=== PATIENT | male | born 1960 | race Caucasian/White ===

== ENCOUNTER → 2019-02-13 | Outpatient (CLI) | payer OTHER ==
--- NOTE | 2019-02-13 23:14 | CT ---
EXAMINATION TYPE: CT chest w con DATE OF EXAM: 02/13/2019 COMPARISON: None at this institution. HISTORY: abnormal cxr. hx of CABG. CT DLP: 480.5 mGycm. Automated Exposure Control for Dose Reduction was Utilized. TECHNIQUE: CT scan of the thorax is performed following with IV Contrast, patient injected with 100 mL of Isovue 300. FINDINGS: LUNGS: There is 9 mm nodule subpleural region superior aspect left lower lobe posteriorly that appear s to have a central round calcification occupying majority of nodule, strongly suspect benign calcifi ed granuloma. Consider CT in 6-12 months time to document stability. No additional suspicious nodules or masses. No pleural effusion or pneumothorax. Lungs are clear. MEDIASTINUM: There are no greater than 1 cm hilar or mediastinal lymph nodes. Few prominent but subce ntimeter lymph nodes near veena incidentally noted. No cardiomegaly or pericardial effusion is seen . Post-CABG changes with mediastinal clips and sternal wires is present. Ascending aorta measures up to 4.4 cm in diameter axial image 25 and sagittal image 59. No aneurysm extension into the arch or d escending aorta. Some sternal nonunion superiorly noted. OTHER: Visualized liver is hypodense consistent with diffuse fatty infiltration. Simple appearing 1.4 cm thin-walled cyst laterally in upper pole right kidney especially 71. IMPRESSION: 9 mm nodule superior posterior left lower lobe has round central calcification strongly f avoring benign granuloma. Consider CT follow-up in 6-12 months time to document stability. Note is ma de of ascending thoracic aortic aneurysm up to 4.4 cm also which can be reassessed on follow-up.
== END | disposition home or self-care (01) ==
LOC: RADCTMAIN 16:23
PROVIDERS: ATTEND Family Medicine
DX: J98.4 Other disorders of lung (principal); R91.1 Solitary pulmonary nodule; I71.2 Thoracic aortic aneurysm, without rupture; J44.9 Chronic obstructive pulmonary disease, unspecified; Z95.1 Presence of aortocoronary bypass graft
CPT/HCPCS: 71260; Q9967

== ENCOUNTER → 2020-04-02 | Outpatient (CLI) | payer OTHER | END | disposition home or self-care (01) | LOC: LABPAT 12:47 | PROVIDERS: ATTEND Orthopaedic Surgery | DX: Z01.812 Encounter for preprocedural laboratory examination (principal) | CPT/HCPCS: 87070 ==

== ENCOUNTER 2020-04-14 05:49 | Day surgery (SDC) | payer OTHER ==
[2020-04-09 18:00] VITALS: BMI 31.1
--- NOTE | 2020-04-13 09:52 | HP ---
HISTORY AND PHYSICAL CHIEF COMPLAINT: Left knee pain. 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 He notes pain with prolonged walking and getting up from a seated position. He notes it bothers him daily. He has tried previous medications in addition to injections with only partial temporary relief. He has also tried a home exercise program with activity modifications. PAST MEDICAL HISTORY: Significant for coronary artery disease, gout, hypertension and COPD. PAST SURGICAL HISTORY: Significant for coronary artery bypass grafting and hernia repair. CURRENT MEDICATIONS: 1. Allopurinol. 2. Carvedilol. 3. Lisinopril. 4. Pravastatin. ALLERGIES: He denies drug allergies. FAMILY HISTORY: Noncontributory. SOCIAL HISTORY: Significant for 1 pack per day tobacco use and social alcohol use. REVIEW OF SYSTEMS: Sixteen-point review of systems otherwise reviewed and is noncontributory. PHYSICAL EXAMINATION: On examination, the patient is approximately 6 feet tall, 217 pounds of endomorphic habitus. HEENT exam is nonfocal. Neck is supple. He has painless passive motion of the left hip. Straight leg raise is negative. Active motion left knee -12 to 95 degrees of flexion. He has a large effusion. He is tender about the medial joint line. Collaterals are stable, Keaton is negative, Dana's is equivocal. He has genu varum alignment. His distal neurovascular exam appears intact in the left lower extremity. X-rays to include weightbearing notch, lateral Merchant views left knee obtained in the office show severe medial compartment osteoarthrosis with [id number] changes. IMPRESSION: 1. Left knee severe medial and patellofemoral compartment osteoarthrosis. 2. History of chronic obstructive pulmonary disease. 3. History of coronary artery disease. RECOMMENDATIONS: I talked to the patient at length regarding his condition and treatment options. At this point, he is quite symptomatic and limited because of pain related to his osteoarthrosis despite conservative measures. After thorough discussion, he opts to proceed with surgery. We will plan to proceed with left total knee arthroplasty. MMODL / IJN: [id number] /
[~2020-04-14 05:49] MED LIST: ACETAMINOPHEN TAB 500 MG TAB PO PRN; MELOXICAM 7.5 MG TAB PO PRN; MIDAZOLAM 2 MG/2 ML VIAL IV PRN; TRANEXAMIC ACID 1,000 MG in SODIUM CHLORIDE 0.9% 100 ML IVPB PRN
[2020-04-14] MEDS: LIDOCAINE 1% (10MG/ML) FOR IV START INTRADERMA PRN ×2 (06:40→06:42)
[2020-04-14] MEDS: LACTATED RINGERS 1,000 ML IV SCH ×2 (06:40→07:53)
[2020-04-14] MEDS: DEXAMETHASONE SOD PHOSPHATE 4 MG/ML 1 ML VIAL IV ONE ×2 (07:00→11:47)
[2020-04-14] MEDS: ONDANSETRON 4 MG/2 ML VIAL IVP ONE ×2 (07:00→11:47)
[2020-04-14] MEDS ORDERED: fentaNYL (PF) 50 MCG/ML 2 ML AMP IV PRN (07:00)
[2020-04-14] MEDS ORDERED: HYDROmorphone 0.5 MG/0.5 ML SYRINGE IVP PRN ×2 (07:00→09:37)
[2020-04-14] MEDS ORDERED: fentaNYL (PF) 50 MCG/ML 2 ML AMP IVP ONE (07:24)
[2020-04-14] MEDS ORDERED: ROPIVACAINE 0.2%-NS ON-Q PUMP 1,090 MG, EMPTY PAIN BALL 1 EACH MISCELLANE PRN (07:43)
--- NOTE | 2020-04-14 07:43 | P.ANPRN ---
Procedure Note - Anesthesia - Nerve Block Performed Left Adductor Canal Infusion Time Out Performed: Yes Date of Procedure: 04/14/20 Procedure Start Time: : Procedure Stop Time: :31 Location of Patient: PreOp Indication: Requested by Surgeon Specifically requested for management of pain by DrAroldo: Stephon Delaney Sedation Type: Sedate with meaningful contact maintained Preparation: Sterile Prep, Sterile Dressing Position: Supine Catheter: Indwelling Needle Types: Pajunk Needle Gauge: 18, 20 Ultrasound used to visualize needle placement: Yes Ultrasound used to observe medication spread: Yes Injectate: 0.5% Ropivacaine (see comment for volume) (20 ml) Blood Aspirated: No Pain Paresthesia on Injection Noted: No Resistance on Injection: Normal Image Stored and Saved: Yes Events: Uneventful and Well Tolerated
[2020-04-14] MEDS ORDERED: ROPIVACAINE 246.25 MG, EPINEPHrine 0.5 MG, KETOROLAC 30 MG, cloNIDine HCL/PF 80 MCG, WA... MISCELLANE ONE ×5 (07:45)
[2020-04-14] MEDS ORDERED: fentaNYL (PF) 50 MCG/ML 2 ML AMP ONE (07:49)
[2020-04-14] MEDS ORDERED: PROPOFOL 10 MG/ML 20 ML VIAL IV ONE (07:49)
[2020-04-14] MEDS ORDERED: TRANEXAMIC ACID 1,000 MG/10 ML VIAL ONE (07:49)
[2020-04-14] MEDS ORDERED: MIDAZOLAM 2 MG/2 ML VIAL ONE (07:49)
[2020-04-14] MEDS ORDERED: KETAMINE 10 MG/ML 20 ML VIAL ONE (07:49)
[2020-04-14] MEDS ORDERED: PHENYLEPHRINE-0.9% NACL SYG 1,000 MCG/10 ML SYRINGE ONE (07:49)
[2020-04-14] MEDS ORDERED: SODIUM CHLORIDE 0.9% 100 ML BAG ONE (07:49)
[2020-04-14] MEDS ORDERED: LACTATED RINGERS 1,000 ML IV ONE (09:30)
[2020-04-14] MEDS ORDERED: NALOXONE 0.4 MG/ML 1 ML VIAL IV PRN (09:37)
[2020-04-14] MEDS ORDERED: ACETAMINOPHEN TAB 325 MG TAB PO PRN (09:37)
[2020-04-14] MEDS ORDERED: MAGNESIUM HYDROXIDE 2,400 MG/10 ML CUP PO PRN (09:37)
[2020-04-14] MEDS ORDERED: ONDANSETRON 4 MG/2 ML VIAL IVP PRN (09:37)
[2020-04-14] MEDS ORDERED: HYDROmorphone 1 MG/ML 1 ML SYRINGE IVP PRN (09:37)
[2020-04-14] MEDS ORDERED: HYDROcodone/APAP 7.5-325MG 1 EACH TAB PO PRN ×2 (09:37→09:39)
--- NOTE | 2020-04-14 10:11 | P.OP ---
Date of Procedure: 04/14/20 Preoperative Diagnosis: Left knee severe tricompartmental arthrosis Postoperative Diagnosis: Same Procedure(s) Performed: Left total knee arthroplastycruciate retainingcemented Implants: [employer] size 8 journeyed 2 cemented femoral component, size 7 cemented tibial component, 9 mm articular surface, 35 mm cemented patellar component. Anesthesia: regional, local, spinal Surgeon: Stephon Delaney Sales Representative [employer]1: Doyle Walton Estimated Blood Loss (ml): 50 Pathology: other (Bone fragments) Condition: stable Disposition: PACU Indications for Procedure: The patient's a 59-year-old gentleman who presents with progressive left knee pain secondary to osteoarthrosis despite previous conservative measures. A discussion of the risks and benefits of operative intervention versus continued conservative measures was made with patient. He opted to proceed with surgery. Operative risks to include infection, neurovascular injury, development of blood clots, possible component loosening, possible component failure need for subsequent procedures was discussed. Informed consent was obtained. Operative Findings: As below Description of Procedure: The patient was brought to the operating room, and after induction of spinal anesthesia the left lower extremity was prepped and draped in a normal fashion. The tourniquet was inflated to 270 mmHg. A longitudinal incision extending 3 finger breaths above the superior pole of the patella extending to the medial aspect the tibial tubercle was then made. The skin and subcutaneous tissues were divided sharply. Electrocautery was used for hemostasis. A medial parapatellar arthrotomy was then performed. The medial soft tissues to include the superficial and deep portions of the medial collateral ligament as well as the medial hamstring tendons were elevated subperiosteally. The proximal medial tibia osteophytes were carefully removed. The patella was everted. The knee was flexed. A portion of the retropatellar fat pad was excised sharply. The anterior cruciate ligament was sacrificed. A starting hole was made in the distal femur 1 cm anterior to the posterior cruciate origin. An intramedullary femoral guide was gently inserted planning on 5 valgus distal cut with 9 mm distal resection. The cutting block was pinned in place. The distal cut was then made. The posterior referencing sizing guide was utilized. 3 of external rotation was built into the system and verified off the trans- epicondylar axis and the posterior condyles. I felt size 8 was most appropriate. The cutting block was pinned in place. The anterior, posterior, and chamfer cuts were then made. The bone fragments were removed. A sulcus cut was then made with the appropriate guide. The trial size 8 femoral component was then placed and was fully seated. There was good anterior to posterior and medial to lateral fit. The distal peg holes were then drilled. The trial component was then removed. Attention was then paid towards preparing the proximal tibia. An extra medullary guide was utilized in line with the tibial shaft and second metatarsal distally. 3 posterior slope was planned. I planned on 2 mm resection from the medial compartment. The cutting block was pinned in place. The proximal tibial cut was then made. The bone was removed in one fragment. The remnants of the medial and lateral menisci were excised the capsule junction with electrocautery. The tibia sized most appropriately at size 7. The posterior osteophytes off the distal femur were carefully removed with a curved osteotome. The trial tibial and femoral components were placed along with a 9 millimeters articular surface. I was able to obtain full flexion and extension with good stability with varus and valgus stress. After several flexion and extension cycles, the tibial rotation was marked with electrocautery in line with the medial one third of the tibial tubercle. Attention was then paid towards preparing the patella. A patella reamer was utilized taking this down to 14 mm of bone stock. A good flush cut was made. The patella sized most appropriately at 35 millimeters. The peg holes were then drilled. The trial component was placed. The knee was taken through a range of motion. I had good patellofemoral tracking with no hands technique. The trial components were then removed. The tibia was prepared in the appropriate rotation with appropriate drill and keel punch. The flexion and extension gaps were checked and felt to be symmetric. The posterior soft tissues were injected with ropivacaine. The bony surfaces were prepared with pulsatile lavage and dried. The deep tibial component was then cemented in place and was fully seated. Excess cement was removed. The femoral component was cemented in place and was fully seated. Again excess cement was removed. The trial 9 millimeters surface was then inserted in the knee was put in full extension. The patella component was cemented in place. After the cement had sufficiently hardened, the knee was again taken through a range of motion. Again there was good stability in flexion and extension with varus and valgus stress. The trial articular surface was then removed. The final articular surface was placed and was impacted. Care was taken to avoid any soft tissue interposition. Pulsatile lavage was again utilized. The tourniquet was deflated with approximately 60 minutes total tourniquet time. There was minimal drainage therefore a deep drain was not placed. The medial parapatellar arthrotomy was then closed with #2 Ethibond suture. The subcutaneous tissues were reapproximated interrupted 2- 0 Vicryl sutures. The skin was reapproximated with 3-0 subarticular strata fix suture. Skin tape and adhesive was applied. A sterile dressing was applied. The patient was then awoken from sedation and transferred to recovery room in good condition. Blood loss was estimated at 50 milliliters. No complications were incurred. Sponge and needle counts were correct at the end the case. Mahesh EDMONDS assisted during the major components this case to include exposure, bone resection, and implantation.
--- NOTE | 2020-04-14 11:10 | XR ---
EXAMINATION TYPE: XR knee limited LT DATE OF EXAM: 04/14/2020 COMPARISON: NONE HISTORY: 59-year-old male postoperative assessment of surgical alignment. TECHNIQUE: 2 views FINDINGS: Images demonstrating placement of left total knee arthroplasty. Both distal femoral and proximal tibi al components of the prosthesis appear well seated without periprosthetic fracture. Alignment grossly anatomic. Anterior soft tissue swelling with scattered soft tissue air as well as intra-articular ai r relating to recent operation. Old surgical clips medial aspect of the distal thigh/upper knee. IMPRESSION: Uncomplicated postoperative appearance left total knee arthroplasty.
--- NOTE | 2020-04-14 15:20 | P.CONS ---
History of Present Illness - Reason for Consult Consult date: 04/14/20 med mgmt - Chief Complaint med mgmt - History of Present Illness 59 year old man with CAD s/p CABG, HTN/HLD, mood disorder, gout presented for elective TKA. Medicine consulted by ortho for medical management. Pt was cleared by cardiology for this procedure, but it is noted that he is due for a [facility] with possible stenting following stabilization from knee surgery. At this time patient has no complaints, denying: f, c, n/v/c/d, chest/abd pain, palps, dyspnea, syncope, dysuria/dyschezia, melena/hematochezia, numbness/weakness of extremities. Pt is HDS on my evaluation, afebrile. No labs to review. Review of Systems All Systems reviewed and pertinent positives and negatives noted in HPI, all other symptoms are negative Past Medical History Past Medical History: Coronary Artery Disease (CAD), CVA/TIA, Hyperlipidemia, Hypertension, Myocardial Infarction (MS), Musculoskeletal Disorder, Osteoarthritis (OA) Additional Past Medical History / Comment(s): TIA, GOUT Last Myocardial Infarction Date:: UNK History of Any Multi-Drug Resistant Organisms: None Reported Past Surgical History: Coronary Bypass/CABG, Heart Catheterization, Hernia Repair Additional Past Surgical History / Comment(s): Quad CABG 2004, TLK mar 2020 Past Anesthesia/Blood Transfusion Reactions: Previous Problems w/ Anesthesia Additional Past Anesthesia/Blood Transfusion Reaction / Comm: STATES IT TOOK HIM SEVERAL DAYS TO WAKE UP AFTER CABG, NOT SURE IF IT WAS ANESTHESIA. Past Psychological History: No Psychological Hx Reported Smoking Status: Current every day smoker Past Alcohol Use History: Occasional Additional Past Alcohol Use History / Comment(s): Smoking since age 19, was 1 ppd, now 1/2 ppd - on Chantix, trying to quit Past Drug Use History: Cocaine Additional Drug Use History / Comment(s): uses occ cocaine - Past Family History Mother Family Medical History: Coronary Artery Disease (CAD), Diabetes Mellitus, Liver Disease Father Family Medical History: Coronary Artery Disease (CAD), Liver Disease Medications and Allergies Home Medications Medication Instructions Recorded Confirmed Type Aspirin 81 mg PO DAILY 05/08/15 04/14/20 History Pravastatin Sodium [Pravachol] 40 mg PO DAILY 05/08/15 04/14/20 History allopurinoL [Zyloprim] 300 mg PO DAILY 05/08/15 04/14/20 History carvediloL [Coreg] 6.25 mg PO DAILY 05/08/15 04/14/20 History lisinopriL [Zestril] 10 mg PO DAILY 05/08/15 04/14/20 History Fish Oil/Dha/Epa [Fish Oil 1,200 1 each PO DAILY 04/09/20 04/14/20 History mg Fish Oil] Isosorbide Mononitrate [Isosorbide 30 mg PO DAILY 04/09/20 04/14/20 History Mononitrate ER] Naproxen [Naprosyn] 500 mg PO DIRECTED PRN 04/09/20 04/14/20 History Varenicline Tartrate [Chantix 1 mg PO BID 04/09/20 04/14/20 History Continuing Pack] Allergies Allergy/AdvReac Type Severity Reaction Status Date / Time No Known Allergies Allergy Verified 04/14/20 06:11 Physical Exam Osteopathic Statement: *. No significant issues noted on an osteopathic structural exam other than those noted in the History and Physical/Consult. Vitals: Vital Signs Temp Pulse Pulse Resp BP BP Pulse Ox 04/14/20 11:57 97.8 F 64 16 108/70 96 04/14/20 11:45 62 16 108/70 99 04/14/20 11:15 66 16 114/72 99 04/14/20 11:00 66 16 115/65 99 04/14/20 10:45 66 18 108/71 95 04/14/20 10:30 68 18 111/73 95 04/14/20 10:15 65 18 100/65 94 L 04/14/20 10:00 97.1 F L 70 22 101/57 93 L 04/14/20 07:40 71 18 117/68 96 04/14/20 06:29 97.8 F 73 18 97 Intake and Output 04/14/20 04/14/20 04/14/20 06:59 14:59 22:59 Intake Total 1350 Output Total 50 Balance 1300 Intake: IV 1350 Output: Estimated Blood Loss 50 Other: Weight 103.8 kg 103.8 kg Gen: awake, alert HEENT: normocephalic, atraumatic, good hearing acuity, moist mucous membranes Resp: good air exchange, breathing comfortably with no accessory muscle use, clear to auscultation bilaterally CVS: good distal perfusion x 4, regular rate and rhythm without murmurs GI: soft, NTTP, ND : no SPT, no CVAT, beard catheter not present MSK: no pitting edema, no clubbing Neuro: non-focal, moving all extremities Psych: cooperative, euthymic mood Assessment and Plan Assessment: 1. CAD s/p CABG 2. COPD without exacerbation 3. HTN 4. HLD 5. Chronic Diastolic Heart Failure, grade I diastolic dysfunction 6. Abnormal Stress Test 59 year old man with CAD, COPD, HTN/HLD, dHF presented for elective TKA on the left, which was successful without complications. Medicine consulted for med management. Plan: - monitor on telemetry - EKG/Nitro PRN for chest pain - PT/OT - resume aspirin as soon as feasible, to be cleared by primary team - continue home statin, lisinopril, coreg, imdur - continue home fish oil - I/Os, daily weights - continue home allopurinol, varenicline Full Code enoxaparin 40mg daily
[2020-04-14 15:42] LABS: African American GFR (CKD) >90 (>60 ml/min/1.73 sqM); Anion Gap 8 mmol/L; Blood Urea Nitrogen 24 mg/dL (9-20); Calcium 9.2 mg/dL (8.4-10.2); Carbon Dioxide 23 mmol/L (22-30); Chloride 104 mmol/L (98-107); Glucose 158 mg/dL (74-99); Magnesium 2.1 mg/dL (1.6-2.3); Non-African American GFR(CKD) >90 (>60 ml/min/1.73 sqM); Sodium 135 mmol/L (137-145)
[2020-04-14 15:54] LABS: Potassium 4.4 mmol/L (3.5-5.1)
[2020-04-14] MEDS: VARENICLINE 1 MG TAB PO SCH (20:38)
[2020-04-14] MEDS ORDERED: SENNOSIDES-DOCUSATE SODIUM 1 EACH TAB PO SCH (21:00)
[2020-04-15] MEDS: LACTATED RINGERS 1,000 ML IV SCH (05:04)
[2020-04-15] MEDS: VARENICLINE 1 MG TAB PO SCH (06:50)
[2020-04-15 07:45] VITALS: BP 128/81; PULSE 67; RESP 18; TEMP 98
[2020-04-15] MEDS ORDERED: PRAVASTATIN SODIUM 40 MG TAB PO SCH (09:00)
[2020-04-15] MEDS ORDERED: allopurinoL 300 MG TAB PO SCH (09:00)
[2020-04-15] MEDS ORDERED: lisinopriL 10 MG TAB PO SCH (09:00)
[2020-04-15] MEDS ORDERED: ISOSORBIDE MONONITRATE ER 30 MG TAB.ER.24H PO SCH (09:00)
[2020-04-15] MEDS ORDERED: carvediloL 6.25 MG TAB PO SCH (09:00)
[2020-04-15] MEDS ORDERED: NON FORMULARY DRUG (Fish Oil/Dha/Epa [Fish Oil 1,200 Mg Fish Oil] 1 EACH Capsule) PO SCH (09:00)
[2020-04-15] MEDS ORDERED: ENOXAPARIN 40 MG/0.4 ML SYRINGE SQ SCH (09:00)
[2020-04-15 09:19] LABS: Basophils # (A) 0.02 X 10*3/uL (0.00-0.10); Basophils % (A) 0.2 %; Eosinophils # (A) 0.16 X 10*3/uL (0.04-0.35); Eosinophils % (A) 1.5 %; HCT 39.4 % (39.6-50.0); Lymphocytes # (A) 2.21 X 10*3/uL (0.90-5.00); Lymphocytes % (A) 20.1 %; MCH 31.3 pg (27.0-32.0); MCV 94.9 fL (80.0-97.0); Mean Platelet Volume 10.7 fL (9.5-12.2); Monocytes # (A) 0.84 X 10*3/uL (0.20-1.00); Monocytes % (A) 7.6 %; Neutrophils # (A) 7.75 X 10*3/uL (1.80-7.70); Neutrophils % (A) 70.2 %; Platelet Count 147 X 10*3/uL (140-440); RBC 4.15 X 10*6/uL (4.40-5.60); RDW 13.2 % (11.5-14.5); WBC 11.02 X 10*3/uL (4.50-10.00)
--- NOTE | 2020-04-15 09:28 | P.PN ---
Subjective Progress Note Date: 04/15/20 Principal diagnosis: Status post left total knee arthroplasty Patient is examined today at bedside, he was visualized ambulating with his walker. He did very well with therapy. He is urinating without difficulties. He pain is well-controlled. He denies any headaches, lightheadedness, chest pain, shortness of breath, nausea vomiting, fever or chills. Objective - Vital Signs Vital signs: Vital Signs Temp 98 F 04/15/20 07:02 Pulse 67 04/15/20 07:02 Resp 18 04/15/20 07:02 BP 128/81 04/15/20 07:02 Pulse Ox 94 L 04/15/20 07:02 Intake & Output 04/14/20 04/15/20 04/15/20 18:59 06:59 18:59 Intake Total 1350 Output Total 50 Balance 1300 Weight 103.8 kg Intake: IV 1350 Output: Estimated Blood Loss 50 Other: Voiding Method Toilet # Voids 1 1 - Exam Left lower extremity: Incision is clean, dry, and intact. The exofin fusion tape is in good condition. There is minimal soft tissue swelling and ecchymosis surrounding the medial and lateral aspects of the incision. Calf is soft, no tenderness with palpation. Plantar flexion, dorsiflexion, EHL, FHL are intact. Sensory exam to light touch throughout the extremity is intact, dorsal pedis pulses 2+. - Labs CBC & Chem 7: 04/15/20 05:36 04/14/20 15:07 Labs: Abnormal Lab Results - Last 24 Hours (Table) 04/14/20 04/15/20 Range/Units 15:07 05:36 WBC 11.02 H (4.50-10.00) X 10*3/uL RBC 4.15 L (4.40-5.60) X 10*6/uL Hct 39.4 L (39.6-50.0) % Neutrophils # 7.75 H (1.80-7.70) X 10*3/uL Sodium 135 L (137-145) mmol/L BUN 24 H (9-20) mg/dL Glucose 158 H (74-99) mg/dL Assessment and Plan Assessment: Postoperative day #1 status post left total knee arthroplasty Plan: Pain control, plan for discharge home on Haynes 7.5 mg/325 mg DVT prophylaxis, Eliquis 2.5 mg twice a day for 2 weeks Wound care instructions were discussed, icing and elevating techniques discussed Home physical therapy and nursing after discharge Medical recommendations Plan for discharge home today Time with Patient: Less than 30
--- NOTE | 2020-04-15 09:31 | P.DS ---
Providers Date of admission: 04/14/2020 Expected date of discharge: 04/15/20 Attending physician: Stephon Delaney Consults: 04/14/20 09:39 Consult Physician Routine Consulting Provider: Melva Doherty Consult Reason/Comments: Medical Management Do you want consulting provider notified?: Yes Primary care physician: Stated None Hospital Course: Date of admission: 04/14/2020 Date of discharge: 04/15/2020 Admission diagnosis: Status post left total knee arthroplasty Discharge diagnosis: Same Attending physician: Dr. Delaney Surgical procedures: Left total knee arthroplasty Brief history: Patient is a 59-year-old male with a history of progressive primary left knee osteoarthritis. At this point patient has failed conservative treatment measures and has opted to proceed with a elective left total knee arthroplasty. Hospital course: Details of patient's surgery can be found in operative report. Patient tolerated the procedure well and was subsequently transported to orthopedic floor. Patient's orthopeidc and medical care was provided daily. Patient had daily laboratory tests performed for evaluation of overall blood counts. Patient had daily physical therapy to include strengthening range of motion as well as education with walker ambulation. Patient was treated with Lovenox for their postoperative DVT prophylaxis during their inpatient stay. Patient was noted to have a relatively uneventful postoperative course. Patient reported satisfactory pain control with oral pain medications by postoperative day 0. Patient showed satisfactory progress with physical therapy. Patient moved steadily through the program and had no difficulty meeting the goals by postoperative day 0. Given patient's otherwise satisfactory course and having met physical therapy goals, plan is to discharge patient home on postoperative day 1. Discharge condition/disposition: Patient will be discharged home in stable condition. Discharge medications: Instructions are given on resumption of patient's normal daily medications per primary care recommendation, in addition patient will be prescribed Curlew 7.5 mg/325 mg, Colace 100 mg, Eliquis 2.5 mg. Discharge instructions: 1. Wound care and infection precautions, keep incision dry and covered while showering, no lotions, creams, moisturizers. No soaking, tubs, pools, hottubs. Do not scrub over the incision. 2. Weight-bear as tolerated with walker / cane until follow-up. 3. Ice and elevate when necessary. Do not exceed 20 minutes per hour with ice pack. 4. Utilize compression sleeve until seen at first follow up appointment. 5. Visiting nursing care. 6. Home physical therapy including home CPM. 7. Pain meds and anticoagulants per prescription. 8. Pain medication has potential to cause constipation. Increase oral fluid and fiber intake. Contact primary care provider if you have not had a bowel movement within 48 hours after discharge 9. No anti-inflammatory medication until discussed at first post operative visit, this including Motrin, Aleve, Mobic, Diclofenac 10. Follow up in office at 2 weeks postop with Mahesh Walton PA-C 11. Follow up with your primary care doctor 7-10 days after discharge. 12. Contact [facility] with any questions, . Procedures: Left total knee arthroplasty Patient Condition at Discharge: Good Plan - Discharge Summary Discharge Rx Participant: No New Discharge Prescriptions: New Docusate [Colace] 100 mg PO DAILY #30 capsule Apixaban [Eliquis] 2.5 mg PO BID #60 tab HYDROcodone/APAP 7.5-325MG [Curlew 7.5] 1 - 2 each PO Q6HR PRN #42 tab PRN Reason: Pain Continue Pravastatin Sodium [Pravachol] 40 mg PO DAILY lisinopriL [Zestril] 10 mg PO DAILY carvediloL [Coreg] 6.25 mg PO DAILY Aspirin 81 mg PO DAILY allopurinoL [Zyloprim] 300 mg PO DAILY Isosorbide Mononitrate [Isosorbide Mononitrate ER] 30 mg PO DAILY Fish Oil/Dha/Epa [Fish Oil 1,200 mg Fish Oil] 1 each PO DAILY Varenicline Tartrate [Chantix Continuing Pack] 1 mg PO BID No Action Naproxen [Naprosyn] 500 mg PO DIRECTED PRN PRN Reason: Pain Discharge Medication List Aspirin 81 mg PO DAILY 05/08/15 [History] Pravastatin Sodium [Pravachol] 40 mg PO DAILY 05/08/15 [History] allopurinoL [Zyloprim] 300 mg PO DAILY 05/08/15 [History] carvediloL [Coreg] 6.25 mg PO DAILY 05/08/15 [History] lisinopriL [Zestril] 10 mg PO DAILY 05/08/15 [History] Fish Oil/Dha/Epa [Fish Oil 1,200 mg Fish Oil] 1 each PO DAILY 04/09/20 [History] Isosorbide Mononitrate [Isosorbide Mononitrate ER] 30 mg PO DAILY 04/09/20 [History] Naproxen [Naprosyn] 500 mg PO DIRECTED PRN 04/09/20 [History] Varenicline Tartrate [Chantix Continuing Pack] 1 mg PO BID 04/09/20 [History] Apixaban [Eliquis] 2.5 mg PO BID #60 tab 04/15/20 [Rx] Docusate [Colace] 100 mg PO DAILY #30 capsule 04/15/20 [Rx] HYDROcodone/APAP 7.5-325MG [Curlew 7.5] 1 - 2 each PO Q6HR PRN #42 tab 04/15/20 [Rx] Follow up Appointment(s)/Referral(s): Doyle Walton PAC [PHYSICIAN RESPIRATORY THERAPY AIDE] - 04/29/20 2:10 pm Patient Instructions/Handouts: *Surgery [facility] - On-Q Pain Pump Discharge Instructions, Precautions after Total Joint Replacement Surgery (DC), Joint Replacement Surgery (DC) Activity/Diet/Wound Care/Special Instructions: Orthopedic Discharge Instructions: 1. Wound care and infection precautions, keep incision dry and covered while showering, no lotions, creams, moisturizers. No soaking, pools, hot tubs. Do not scrub over incision. 2. Weight-bear as tolerated with walker / cane until follow-up. 3. Ice and elevate when necessary. Do not exceed 20 minutes per hour with ice pack. 4. Utilize compression sleeve until seen at first follow up appointment. 5. Pain meds and anticoagulants per prescription. 6. Pain medication has potential to cause constipation. Increase oral fluid and fiber intake. Contact primary care provider if you have not had a bowel movement within 48 hours after discharge. 7. No anti-inflammatory medication until discussed at first post operative visit, this including Motrin, Aleve, Mobic, Diclofenac. 8. Follow up in office at 2 weeks postop with Mahesh Walton PA-C 9. Follow up with your primary care doctor 7-10 days after discharge. 10. Contact [facility] with any questions, . Discharge Disposition: HOME WITH HOME HEALTH SERVICES
--- NOTE | 2020-04-15 18:12 | P.PN ---
Subjective Progress Note Date: 04/15/20 (Delayed charting seen at 0845) Principal diagnosis: knee pain Patient is a 59-year-old male with a history of coronary artery disease status post CABG, hypertension, dyslipidemia who presented for elective total knee arthroplasty. Patient seen and examined at bedside. He denies any chest pain, shortness breath, nausea, vomiting. Pain is well controlled. He is up and ambulating with physical therapy. General: non toxic, no distress, appears at stated age Derm: warm, dry Head: atraumatic, normocephalic, symmetric Eyes: EOMI, no lid lag, anicteric sclera Mouth: no lip lesion, mucus membranes moist Cardiovascular: S1S2 reg grade 1 murmur, positive posterior tibial pulse bilateral, Lungs: CTA bilateral, no rhonchi, no rales , no accessory muscle use Abdominal: soft, nontender to palpation, no guarding, no appreciable organomegaly Ext: no gross muscle atrophy,, 1+ edema in her left knee, no contractures Neuro: CN II-XI grossly intact, no focal neuro deficits Psych: Alert, oriented, appropriate affect Assessment: Patient is a 59-year-old male status post left total knee arthroplasty. Cardiac artery disease status post CABG COPD without exacerbation Hypertension Dyslipidemia Chronic diastolic heart failure Recently discovered heart murmur, undergoing workup Thank you for allowing us to proceed the care of this pleasant patient. He is medically optimized for discharge at the discretion of orthopedic surgery. Discharge medication reconciliation has been completed for his chronic home medications. Patient to follow-up with Dr. Yu next week and cardiology as indicated. Objective - Vital Signs Vital signs: Vital Signs Temp 98 F 04/15/20 07:02 Pulse 67 04/15/20 07:02 Resp 18 04/15/20 07:02 BP 128/81 04/15/20 07:02 Pulse Ox 94 L 04/15/20 07:02 Intake & Output 04/14/20 04/15/20 04/15/20 18:59 06:59 18:59 Intake Total 1350 Output Total 50 Balance 1300 Weight 103.8 kg Intake: IV 1350 Output: Estimated Blood Loss 50 Other: Voiding Method Toilet # Voids 1 1 - Labs CBC & Chem 7: 04/15/20 05:36 04/14/20 15:07 Labs: Abnormal Lab Results - Last 24 Hours (Table) 04/15/20 Range/Units 05:36 WBC 11.02 H (4.50-10.00) X 10*3/uL RBC 4.15 L (4.40-5.60) X 10*6/uL Hct 39.4 L (39.6-50.0) % Neutrophils # 7.75 H (1.80-7.70) X 10*3/uL
== END 2020-04-15 12:46 | disposition home health service (06) ==
LOC: OR 05:49 → 4SSUR 09:32 → OR 04-15 12:46
PROVIDERS: ATTEND Orthopaedic Surgery
DX: M17.12 Unilateral primary osteoarthritis, left knee (principal); I25.10 Atherosclerotic heart disease of native coronary artery without angina pectoris; I25.2 Old myocardial infarction; I11.0 Hypertensive heart disease with heart failure; I50.32 Chronic diastolic (congestive) heart failure; J44.9 Chronic obstructive pulmonary disease, unspecified; E78.5 Hyperlipidemia, unspecified; M10.9 Gout, unspecified; Z79.01 Long term (current) use of anticoagulants; Z79.1 Long term (current) use of non-steroidal anti-inflammatories (NSAID); Z79.82 Long term (current) use of aspirin; Z79.899 Other long term (current) drug therapy; Z86.73 Personal history of transient ischemic attack (TIA), and cerebral infarction without residual deficits; Z95.1 Presence of aortocoronary bypass graft; Z98.890 Other specified postprocedural states; Z82.49 Family history of ischemic heart disease and other diseases of the circulatory system; F17.210 Nicotine dependence, cigarettes, uncomplicated
CPT/HCPCS: 93005; 97116; 97162; 64448; 76942; 80048; 83735; 85025; 88300; 73560; 27447; C1713; C1776; J2250; J0171; J1100; J0690; J2405; J1650; J3010; J1885; J2795 ×2; J2370; J2704; J0735

== ENCOUNTER → 2022-02-08 | Outpatient (CLI) | payer OTHER ==
[2022-02-08 23:28] LABS: HCT 47.9 % (39.6-50.0); HGB 16.5 g/dL (13.0-17.0); MCH 32.5 pg (27.0-32.0); MCHC 34.4 g/dL (32.0-37.0); MCV 94.5 fL (80.0-97.0); NRBC Per 100 WBC 0 /100 WBCS (0.0-0.0); Platelet Count 189 X 10*3/uL (140-440); RBC 5.07 X 10*6/uL (4.40-5.60); RDW 13.6 % (11.5-14.5); WBC 8.94 X 10*3/uL (4.50-10.00)
[2022-02-09 00:06] LABS: Albumin 4.6 g/dL (3.8-4.9); Albumin/Globulin Ratio 2.19 (1.60-3.17); Anion Gap 11.2 mmol/L (10.00-18.00); Calcium 9.1 mg/dL (8.7-10.3); Carbon Dioxide 25.8 mmol/L (20.0-27.5); Globulin 2.1 g/dL (1.6-3.3); Non-African American GFR(CKD) 95.7 (60.0-200.0); Potassium 4.5 mmol/L (3.5-5.5); Total Bilirubin 0.3 mg/dL (0.30-1.20); Total Protein 6.7 g/dL (6.2-8.2)
== END | disposition home or self-care (01) ==
LOC: LABWHC1 15:56
PROVIDERS: ATTEND Internal Medicine Interventional Cardiology
DX: I10 Essential (primary) hypertension (principal); I49.1 Atrial premature depolarization; I25.810 Atherosclerosis of coronary artery bypass graft(s) without angina pectoris; I25.5 Ischemic cardiomyopathy; I42.8 Other cardiomyopathies; E78.5 Hyperlipidemia, unspecified; E55.9 Vitamin D deficiency, unspecified; R79.89 Other specified abnormal findings of blood chemistry; Z95.1 Presence of aortocoronary bypass graft
CPT/HCPCS: 36415; 80053; 85027